=== PATIENT | male | born 1955 | race Caucasian/White ===

== ENCOUNTER → 2016-05-19 | Outpatient (CLI) | payer BC ==
[~2016-05-19] MED LIST: ACYCLOVIR200 MG PO; HYDROCODON-ACE1 EAC7 PO; MEDROL DOSEPAK4 MG PO; TRAMADOL HCL50 MG PO; VALIUM2 MG PO
== END | disposition home or self-care (01) ==
LOC: RES 07:41
DX: J98.01 Acute bronchospasm (principal); R94.8 Abnormal results of function studies of other organs and systems
CPT/HCPCS: 94060; 94726; 94729